=== PATIENT | female | born 1960 | race Native Hawaiian/Other Pacific Islander ===

== ENCOUNTER 2019-08-02 07:12 | Emergency (ER) | payer MEDICARE, SELFPAY ==
[2019-08-02 07:25] VITALS: BP 158/70; PULSE 90; RESP 16; TEMP 36.8; O2SAT 89
--- NOTE | 2019-08-02 07:28 | PC.NURSE ---
pt alert. verbal, full sentences/ room air sat 77%, states normally 88%. 02 to 4liters nc. breathing treatment given
--- NOTE | 2019-08-02 07:36 | ED.SOB ---
HPI - SOB/Dyspnea General Chief Complaint: Shortness of Breath/Dyspnea Stated Complaint: shortness of breath,fatigue Time Seen by Provider: 08/02/19 07:25 Source: patient Mode of arrival: Ambulatory History of Present Illness HPI Narrative: Patient is a 59-year-old female with history of asthma and COPD on 2 L of home oxygen presenting with increasing shortness of breath. She says it has really been going on for last month she was seen evaluated walk-in clinic put on prednisone and mycin however over the last 3 days it has gotten significantly worse. He denies any increased productive sputum but has significant shortness of breath with exertion. She denies any fever chills or sweats. yesterday it has not helped. MD Complaint: shortness of breath and cough Onset (ago): day(s) (3) Context: recent illness Relieving factors: oxygen and rest Exacerbating factors: nothing Treatment prior to arrival: oxygen Related Data Home oxygen amount: 2 liters Home Medications Medication Instructions Recorded Confirmed budesonide-formoterol INHALATION 01/30/19 01/30/19 fexofenadine PO 01/30/19 01/30/19 fluticasone furoate NASAL 01/30/19 01/30/19 fluticasone propion-salmeterol INHALATION 01/30/19 01/30/19 ipratropium-albuterol INHALATION 01/30/19 01/30/19 levalbuterol HCl INHALATION 01/30/19 01/30/19 metformin PO 01/30/19 01/30/19 amlodipine 10 mg PO DAILY 08/02/19 08/02/19 fluoxetine 20 mg PO DAILY 08/02/19 08/02/19 furosemide 20 mg PO DAILY 08/02/19 08/02/19 glipizide 10 mg PO DAILY 08/02/19 08/02/19 losartan 100 mg PO DAILY 08/02/19 08/02/19 Previous Rx's Medication Instructions Recorded albuterol sulfate 90 mcg/actuation 1 inh INHALATION Q4-6H PRN #18 gram 07/02/19 aerosol inhaler benzonatate 100 mg capsule 100 mg PO BEDTIME #20 cap 07/02/19 doxycycline hyclate 100 mg PO BID #14 cap 08/02/19 prednisone 10 mg PO DAILY #30 tab 08/02/19 Allergies Allergy/AdvReac Type Severity Reaction Status Date / Time bee venom protein (honey bee) Allergy Severe Anaphylaxis Verified 07/02/19 13:28 lisinopril AdvReac Mild cough Verified 07/02/19 13:28 Diphenhydramine Allergy Unknown Uncoded 07/02/19 13:28 Review of Systems Review of Systems Narrative: GENERAL: Denies chills, fatigue, malaise, fever, sweats, travel HEENT: Denies sinus pain, ear pain, sore throat, difficulty swallowing, neck pain RESPIRATORY: See HPI CARDIOVASCULAR: Denies chest pain, palpitations, orthopnea, edema GASTROINTESTINAL: Denies nausea, vomiting, abdominal pain, diarrhea, constipation, melena. : Denies dysuria, frequency, incontinence, hematuria, urinary retention, flank pain. MUSCULOSKELETAL: Denies weakness, joint pain, or bony pain SKIN: No rash, no erythema, no pruritus NEUROLOGIC: Denies weakness, dizziness, headache, numbness, change in speech, confusion PSYCHIATRIC: No concerning psychosocial issues. 12 point review of systems is negative except for those stated above and HPI Patient History Medical History Asthma (Acute) COPD (chronic obstructive pulmonary disease) (Acute) Social History Smoking Status: Former smoker Smoking Status: Former smoker Substance Use Type: does not use Exam Initial Vital Signs Initial Vital Signs: Vital Signs Temperature 98.2 F 08/02/19 07:25 Pulse Rate 90 08/02/19 07:25 Respiratory Rate 16 08/02/19 07:25 Blood Pressure 158/70 H 08/02/19 07:25 Pulse Oximetry 89 L 08/02/19 07:25 GENERAL: Overweight well-appearing female and in no acute distress. HEENT: Head atraumatic,EOMI, pupils reactive, face symmetric, moist mucous membranes CARDIOVASCULAR: Regular rate and rhythm without murmurs, rubs or gallops. RESPIRATORY: Decreased breath sounds bilaterally no wheezes or tachypnea ABDOMEN: Soft, nontender. Normoactive bowel sounds all 4 quadrants. No guarding or rebound. EXTREMITIES: Normal range of motion, no clubbing or edema. Neurovascularly intact NEUROLOGICAL: Alert and oriented x4.Normal gait and speech. Cranial nerves II through XII grossly intact. SKIN: Warm, dry, no laceration, no petechiae, no rashes or lesions. l Course Orders Ordered: ED Orders 08/02/19 07:34 Consult to Respiratory Therapy Evaluate & Treat 08/02/19 07:35 XR chest 1V Stat 08/02/19 07:40 Complete Blood Count AUTO DIFF Stat Comprehensive Metabolic Panel Stat Magnesium Stat NT-proBNP (BNP-Adult 18+) Stat Troponin & CK Cardiac Panel Stat 08/02/19 09:02 CT angio chest PE protocol Stat Discontinued Medications Albuterol/Ipratropium (Duoneb) 3 ml INH NOW ONE Stop: 08/02/19 07:35 Last Admin: 08/02/19 08:23 Dose: 3 ml Documented by: KATHERINE Sodium Chloride (Normal Saline 0.9%) 1,000 mls @ 150 mls/hr IV CONT JULIUS Last Infusion: 08/02/19 10:32 Dose: 150 mls/hr Documented by: Admin: 08/02/19 07:55 Dose: 150 mls/hr Documented by: SHAE Methylprednisolone (Solu-Medrol 125 Mg Vial) 125 mg IV NOW ONE Stop: 08/02/19 07:35 Last Admin: 08/02/19 07:54 Dose: 125 mg Documented by: SHAE Vital Signs Vital signs: Vital Signs - 8 hr 08/02/19 07:25 08/02/19 09:25 08/02/19 10:35 Temperature 98.2 F Pulse Rate 90 90 88 Respiratory Rate 16 24 Blood Pressure 158/70 H Blood Pressure [Left Arm] 148/72 H 138/63 Pulse Oximetry 89 L 89 L MDM - SOB/Dyspnea Lab Data Attestation: I reviewed the patient's lab results. Result diagrams: 08/02/19 07:40 08/02/19 07:40 Labs: Lab Results 08/02/19 08/02/19 08/02/19 Range/Units 07:40 07:40 07:40 WBC 8.4 (4.5-11.0) X10^3/uL RBC 5.75 H (4.0-5.2) X10^6/uL Hgb 15.4 (12.0-16.0) g/dL Hct 47.8 H (36-46) % MCV 83.1 (80-100) fL MCH 26.9 (26-34) PG MCHC 32.3 (30-36) % RDW 19.6 H (11.6-14.8) % Plt Count 207 (150-400) X10^3/uL Neut % (Auto) 80.2 H (50-75) % Lymph % (Auto) 12.1 L (25-40) % Sampson % (Auto) 4.7 (3-14) % Eos % (Auto) 2.4 (2-4) % Baso % (Auto) 0.6 (0-2) % Neut # (Auto) 6800 (2235-2032) /uL Lymph # (Auto) 1000 L (9086-3537) /uL Sampson # (Auto) 400 (0-900) /uL Eos # (Auto) 200 (0-450) /uL Baso # (Auto) 0 (0-100) /uL Sodium 134 L (137-145) mmol/L Potassium 4.0 (3.4-5.1) mmol/L Chloride 88 L (98-107) mmol/L Carbon Dioxide 38 H (22-32) mmol/L BUN 14 (7-17) mg/dL Creatinine 0.60 (0.52-1.04) mg/dL Estimated GFR > 60.0 (>60) mL/min BUN/Creatinine Ratio 23.3 H (6-22) Glucose 301 H (70-100) mg/dL Calcium 8.9 (8.4-10.2) mg/dL Magnesium 1.9 (1.6-2.3) mg/dL Total Bilirubin 1.2 (0.2-1.3) mg/dL AST 17 (14-36) IU/L ALT 15 (<35) IU/L Alkaline Phosphatase 135 H (38-126) U/L Total Creatine Kinase 66 (30-135) U/L CK-MB (CK-2) TNP CK-MB (CK-2) Rel Index TNP Troponin I < 0.012 (0.01-0.034) ng/mL NT-Pro-B Natriuret Pep 450 H (<125) pg/mL Total Protein 8.0 (6.3-8.2) g/dL Albumin 4.3 (3.5-5.0) g/dL Globulin 3.7 (1.7-4.1) g/dL Albumin/Globulin Ratio 1.2 (1.0-2.8) Imaging Data Chest x-ray: Radiologist's Impression: PROCEDURE: XR CHEST 1V INDICATIONS: short of breath TECHNIQUE: One view of the chest was acquired. COMPARISON: [facility], , CHEST 2VW, 09/24/2014, 14:31. 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 No pleural effusions or pneumothorax. Mediastinum: Prominent right hilum and infrahilar density. Heart size is normal. Bones and chest wall: No suspicious bony lesions. Overlying soft tissues appear unremarkable. IMPRESSION: Prominent right hilum and infrahilar density. Recommend chest CT with contrast. Comment: Findings were discussed with Dr. Arevalo at the time of study dictation. Dictated by: Andrea Yanez M.D. on 08/02/2019 at 8:41 CT scan - chest: Radiologist's Impression: PROCEDURE: CT ANGIO CHEST PE PROTOCOL INDICATIONS: hypoxia, right hilum abnormality TECHNIQUE: After the administration of intravenous contrast, 2 mm thick sections acquired from the pulmonary apices to the posterior costophrenic angles. 3-dimensional maximum intensity projection (MIP) coronal and sagittal reformats were then acquired through the thorax. For radiation dose reduction, the following was used: automated exposure control, adjustment of mA and/or kV according to patient size. COMPARISON: [facility] , CT, NECK SOFT TIS. W/CONTRAST, 02/15/2010, 15:09. [facility], , CHEST 2VW, 09/24/2014, 14:31. [facility], , XR CHEST 1V, 08/02/2019, 7:39. FINDINGS: Image quality: Excellent. Pulmonary arteries: Pulmonary arteries are enlarged, with the main pulmonary artery measuring 4.3 cm. They demonstrate no intraluminal filling defects to suggest central pulmonary embolism. Lungs and pleura: Lungs are clear. Eventration of the posterior leaflet of the right hemidiaphragm, with overlying atelectasis. No pleural effusions or pneumothorax. Central and peripheral airways are patent. Mediastinum: Heart size is normal, without pericardial effusion. Enlarged mediastinal lymph nodes are seen, including a precarinal lymph node measuring 2 x 1.7 cm. Thoracic aorta is normal in caliber and enhancement. Esophagus is normal in caliber, without hiatal hernia. Bones and chest wall: No suspicious bony lesions. Age-appropriate bony degenerative changes are seen. Ribs and thoracic spine appear intact throughout. Thyroid gland demonstrates no significant CT abnormality. No axillary or supraclavicular adenopathy. Abdomen: There is a partially seen prominent ventral hernia, which contains a portion of the liver. Atherosclerotic irregularity is seen of the abdominal aorta. IMPRESSION: Negative for pulmonary embolism. Enlarged mediastinal lymph nodes are seen. These may be neoplastic or reactive. Prominent pulmonary arteries. This is most typically an idiopathic finding. However, please correlate with pulmonary hypertension. The previously seen right hilar adenopathy is attributed to the enlarged right pulmonary artery. Eventration of the posterior leaflet of the right hemidiaphragm can be seen, with overlying atelectasis. Partially seen ventral wall hernia, which contains a portion of the liver. Dictated by: Rashard Pizarro M.D. on 08/02/2019 at 9:26 ECG Data Attestation: I personally reviewed and interpreted this ECG as follows: Prior ECG tracings: available for review Interpretation: Normal sinus rhythm rate 83 p.r. interval 175 QRS [address] elevation depression or T-wave inversion MDM Narrative Medical decision making narrative: Patient's breathing does improve while in the emergency department. She overall does not appear tachypneic. Her oxygen does decreased to 80-83 at times but then quickly increases. Radiology called concerned for right hilum and recommended CT. Will rule out PE as well with her increased hypoxia. CT confirms lymph nodes which may be reactive. Will treat her for COPD exacerbation with long prednisone taper along with antibiotics. I recommend follow-up with her PCP. Discharge Plan Departure Patient Disposition: Home Clinical Impression: COPD (chronic obstructive pulmonary disease) Qualifiers: COPD type: COPD with acute exacerbation Qualified Code(s): J44.1 - Chronic obstructive pulmonary disease with (acute) exacerbation Discharge Date/Time: 08/02/19 10:37 Activity Restrictions/Additional Instructions: *You have been diagnosed with COPD exacerbation *What to do: You do need to have repeat x-ray or CT to make sure the lymph nodes noted on your CT scan have resolved *Continue to take medications as directed Prednisone 40 mg for 3 days, 30 mg for 3 days, 20 mg for 3 days, 10 mg for 3 days Doxycycline 100 mg twice a day for 7 days *Follow up with your primary care provider in 2-3 days *Return to ER if you should have increasing shortness of breath chest pain passing out or any new, worsening or concerning symptoms Prescriptions: New prednisone 10 mg tablet 10 mg PO DAILY Qty: 30 RF: 0 doxycycline hyclate 100 mg capsule 100 mg PO BID Qty: 14 RF: 0 No Action benzonatate 100 mg capsule 100 mg PO BEDTIME Qty: 20 RF: 0 albuterol sulfate 90 mcg/actuation HFA aerosol inhaler 1 inh INHALATION Q4-6H PRN (Reason: shortness of breath) Qty: 18 RF: 0 budesonide-formoterol INHALATION RF: 0 fexofenadine PO RF: 0 fluticasone furoate NASAL RF: 0 fluticasone propion-salmeterol INHALATION RF: 0 ipratropium-albuterol INHALATION RF: 0 levalbuterol HCl INHALATION RF: 0 metformin PO RF: 0 amlodipine 10 mg tablet 10 mg PO DAILY RF: 0 fluoxetine 20 mg capsule 20 mg PO DAILY RF: 0 glipizide 10 mg Tablet 10 mg PO DAILY RF: 0 furosemide 20 mg Tablet 20 mg PO DAILY RF: 0 losartan 100 mg Tablet 100 mg PO DAILY RF: 0 Referrals: Evelyn Benavidez ARNP [Primary Care Provider] -
[2019-08-02 07:50] LABS: Add Manual Diff / Slide Review NO; Basophils Absolute Auto 0 /uL (0-100); Basophils Percent Auto 0.6 % (0-2); Eosinophils Absolute Auto 200 /uL (0-450); Eosinophils Percent Auto 2.4 % (2-4); Hematocrit 47.8 % (36-46); Hemoglobin 15.4 g/dL (12.0-16.0); Lymphocytes Absolute Auto 1000 /uL (1100-4500); Lymphocytes Percent Auto 12.1 % (25-40); Mean Corpuscular HGB Conc 32.3 % (30-36); Mean Corpuscular Hemoglobin 26.9 PG (26-34); Mean Corpuscular Volume 83.1 fL (80-100); Monocytes Absolute Auto 400 /uL (0-900); Monocytes Percent Auto 4.7 % (3-14); Neutrophils Absolute Auto 6800 /uL (1500-7000); Neutrophils Percent Auto 80.2 % (50-75); Platelet Count 207 X10^3/uL (150-400); Red Blood Cell Count 5.75 X10^6/uL (4.0-5.2); Red Cell Distribution Width 19.6 % (11.6-14.8); White Blood Cell Count 8.4 X10^3/uL (4.5-11.0)
[2019-08-02] MEDS: methylPREDNISolone 125 MG/2 ML VIAL IV (07:54)
[2019-08-02] MEDS: SODIUM CHLORIDE 0.9% 1,000 ML 150 ML IV (07:55)
[2019-08-02 07:56] LABS: Creatine Kinase 66 U/L (30-135); Magnesium 1.9 mg/dL (1.6-2.3)
[2019-08-02 07:57] LABS: Alanine Aminotransferase 15 IU/L (<35); Albumin 4.3 g/dL (3.5-5.0); Albumin Globulin Ratio 1.2 (1.0-2.8); Alkaline Phosphatase 135 U/L (38-126); Aspartate Aminotransferase 17 IU/L (14-36); BUN Creatinine Ratio 23.3 (6-22); Bilirubin Total 1.2 mg/dL (0.2-1.3); Blood Urea Nitrogen 14 mg/dL (7-17); Calcium 8.9 mg/dL (8.4-10.2); Carbon Dioxide 38 mmol/L (22-32); Chloride 88 mmol/L (98-107); Estimated Glomerular Filt Rate > 60.0 mL/min (>60); Globulin 3.7 g/dL (1.7-4.1); Glucose 301 mg/dL (70-100); HEMOLYSIS < 15 (0-50); Sodium 134 mmol/L (137-145)
[2019-08-02 08:09] LABS: NT-proBNP (BNP-Adult 18+) 450 pg/mL (<125); Troponin I < 0.012 ng/mL (0.01-0.034)
--- NOTE | 2019-08-02 08:21 | PC.NURSE ---
sat 88%, 02 turned to 2liters/ which she is normally on. agree
[2019-08-02] MEDS: ALBUTEROL/IPRATROPIUM 3 ML AMPUL INH (08:23)
--- NOTE | 2019-08-02 09:02 | DI.CT.S_ITS ---
PROCEDURE: CT ANGIO CHEST PE PROTOCOL INDICATIONS: hypoxia, right hilum abnormality TECHNIQUE: After the administration of intravenous contrast, 2 mm thick sections acquired from the pulmonary apices to the posterior costophrenic angles. 3-dimensional maximum intensity projection (MIP) coronal and sagittal reformats were then acquired through the thorax. For radiation dose reduction, the following was used: automated exposure control, adjustment of mA and/or kV according to patient size. COMPARISON: [facility] [place] , CT, NECK SOFT TIS. W/CONTRAST, 02/15/2010, 15:09. [facility], CR, CHEST 2VW, 09/24/2014, 14:31. [facility], CR, XR CHEST 1V, 08/02/2019, 7:39. FINDINGS: Image quality: Excellent. Pulmonary arteries: Pulmonary arteries are enlarged, with the main pulmonary artery measuring 4.3 cm. They demonstrate no intraluminal filling defects to suggest central pulmonary embolism. Lungs and pleura: Lungs are clear. Eventration of the posterior leaflet of the right hemidiaphragm, with overlying atelectasis. No pleural effusions or pneumothorax. Central and peripheral airways are patent. Mediastinum: Heart size is normal, without pericardial effusion. Enlarged mediastinal lymph nodes are seen, including a precarinal lymph node measuring 2 x 1.7 cm. Thoracic aorta is normal in caliber and enhancement. Esophagus is normal in caliber, without hiatal hernia. Bones and chest wall: No suspicious bony lesions. Age-appropriate bony degenerative changes are seen. Ribs and thoracic spine appear intact throughout. Thyroid gland demonstrates no significant CT abnormality. No axillary or supraclavicular adenopathy. Abdomen: There is a partially seen prominent ventral hernia, which contains a portion of the liver. Atherosclerotic irregularity is seen of the abdominal aorta. IMPRESSION: Negative for pulmonary embolism. Enlarged mediastinal lymph nodes are seen. These may be neoplastic or reactive. Prominent pulmonary arteries. This is most typically an idiopathic finding. However, please correlate with pulmonary hypertension. The previously seen right hilar adenopathy is attributed to the enlarged right pulmonary artery. Eventration of the posterior leaflet of the right hemidiaphragm can be seen, with overlying atelectasis. Partially seen ventral wall hernia, which contains a portion of the liver. Dictated by: Rashard Pizarro M.D. on 08/02/2019 at 9:26 Approved by: Rashard Pizarro M.D. on 08/02/2019 at 9:31
[2019-08-02 09:25] VITALS: BP 148/72; PULSE 90; RESP 24; O2SAT 89
[2019-08-02 10:35] VITALS: BP 138/63; PULSE 88
== END 2019-08-02 10:37 | disposition home or self-care (01) ==
PROVIDERS: Emergency Provider Emergency Medicine; PCP Nurse Practitioner Gerontology
DX: J44.1 Chronic obstructive pulmonary disease with (acute) exacerbation (principal); R09.02 Hypoxemia; Z87.891 Personal history of nicotine dependence
CPT/HCPCS: 36415; 71045; 71275; 80053; 82550; 83735; 83880; 84484; 85025; 93005; 96361; 96374; 99285; J2930; Q9967